=== PATIENT | female | born 1945 | race Caucasian/White ===

== ENCOUNTER → 2025-03-23 08:01 | Outpatient (REF) | payer MEDICARE, OTHER, SELFPAY | LOC: HWLAB 08:01 | PROVIDERS: ATTENDING PHYSICIAN Family Medicine | DX: R19.7 Diarrhea, unspecified (principal) | CPT/HCPCS: 87324; 87449 ==

== ENCOUNTER → 2025-04-15 13:03 | Outpatient (REF) | payer MEDICARE, OTHER, SELFPAY | LOC: HWLAB 13:03 | PROVIDERS: ATTENDING PHYSICIAN Internal Medicine Gastroenterology; FAMILY PHYSICIAN Family Medicine | DX: A04.8 Other specified bacterial intestinal infections (principal) | CPT/HCPCS: 87324; 87449 ==